=== PATIENT | female | born 1955 | race Caucasian/White ===

== ENCOUNTER 2020-11-01 18:42 | Outpatient (REF) | payer OTHER, SELFPAY ==
[2020-11-01 21:38] LABS: Abs Immature Grans 0.04 10^3/uL (0.0-0.06); Absolute Basophil Count 0.02 10^3/uL (0.0-0.2); Absolute Eosinophil Count 0.08 10^3/uL (0.0-0.7); Absolute Lymphocyte Count 2.93 10^3/uL (1.2-3.4); Absolute Monocyte Count 0.58 10^3/uL (0.1-0.8); Absolute Neutrophil Count 6.06 10^3/uL (1.2-6.7); Basophils % 0.2; Eosinophils % 0.8; HCT 43.4 % (36.0-46.0); Immature Grans % 0.4; Lymphocytes % 30.2; MCH 28.5 pg (27.0-33.0); MCHC 32.3 % (32.0-36.0); MCV 88.2 fL (80-95); MPV 10.2 fL (8.0-11.0); Neutrophils % 62.4; Nucleated RBC 0 %; Platelet Count 277 10^3/uL (130-400); RBC 4.92 10^6/uL (3.93-5.22); RDW 12.9 % (11.7-14.6); RDW-SD 42.1 fL; WBC 9.71 10^3/uL (4.4-10.8)
[2020-11-01 22:41] LABS: ALT 25 U/L (14-59); AST 17 U/L (15-37); Albumin 3.5 g/dL (3.4-5.0); Alkaline Phosphatase 65 U/L (46-116); BUN 16 mg/dL (7-18); Bilirubin, Total 0.2 mg/dL (0.2-1.0); CREATININE 0.91 mg/dL (0.55-1.02); Calcium 8.8 mg/dL (8.5-10.1); Chloride 106 mmol/L (98-107); Glucose 132 mg/dL (74-106); Potassium 3.5 mmol/L (3.5-5.1); Sodium 142 mmol/L (136-145); Total Protein 7.2 g/dL (6.4-8.2)
[2020-11-01 22:42] LABS: Hemoglobin A1C 5.8 % (<5.7)
== END 2020-11-01 19:02 ==
LOC: NCHCN 18:42
PROVIDERS: PCP Nurse Practitioner Family; Visit Provider Nurse Practitioner Community Health
DX: E78.5 Hyperlipidemia, unspecified (principal); R73.09 Other abnormal glucose; L29.8 Other pruritus
CPT/HCPCS: 80053; 80061; 83036; 84443; 85025

== ENCOUNTER 2020-12-21 02:05 | Outpatient (CLI) | payer OTHER, SELFPAY ==
[2020-12-21 08:41] VITALS: BP 144/83; PULSE 90; RESP 16; TEMP 37; O2SAT 91
[2020-12-21] MEDS: Normal Saline 500 ML 30 ML IV (09:04)
[2020-12-21] MEDS: Normal Saline Flush 10 ML SYR IVP (09:04)
[2020-12-21 09:08] VITALS: BP 144/82; PULSE 82; RESP 18; TEMP 36.8; O2SAT 92
[2020-12-21 09:31] VITALS: BP 140/83; PULSE 79; RESP 20; TEMP 36.6; O2SAT 92
[2020-12-21 10:01] VITALS: BP 140/84; PULSE 78; RESP 20; TEMP 36.6; O2SAT 92
[2020-12-21 10:27] VITALS: BP 134/80; PULSE 77; RESP 20; TEMP 36.6; O2SAT 92
== END 2020-12-21 02:06 | disposition home or self-care (01) ==
LOC: INF 02:06
PROVIDERS: PCP Nurse Practitioner Family; Visit Provider Family Medicine
DX: U07.1 COVID-19 (principal)
CPT/HCPCS: 96365

== ENCOUNTER 2021-03-25 18:44 | Outpatient (REF) | payer OTHER, SELFPAY | END 2021-03-25 18:45 | disposition home or self-care (01) | LOC: NCHCN 18:44 | PROVIDERS: PCP Nurse Practitioner Family; Visit Provider Nurse Practitioner Family | DX: L02.411 Cutaneous abscess of right axilla (principal) | CPT/HCPCS: 87077; 87070; 87186; 87205 ==

== ENCOUNTER 2022-01-10 16:23 | Outpatient (REF) | payer MEDICARE, SELFPAY ==
[2022-01-10 16:49] LABS: Anion Gap 9.1 mmol/L (3-11); BUN 17 mg/dL (7-18); CO2 27.9 mmol/L (21.0-32.0); CREATININE 0.8 mg/dL (0.55-1.02); Calculated LDL 148 mg/dL (<100); Chloride 105 mmol/L (98-107); Cholesterol 224 mg/dL (<200); Glucose 100 mg/dL (74-106); HDL Cholesterol 50 mg/dL (40-60); Potassium 4.1 mmol/L (3.5-5.1); Sodium 142 mmol/L (136-145); TSH 2.81 uIU/mL (0.36-3.74); Triglyceride 132 mg/dL (<150); Vitamin B12 378 pg/mL (193-986)
== END 2022-01-10 16:24 | disposition home or self-care (01) ==
LOC: NCHCN 16:23
PROVIDERS: PCP Nurse Practitioner Family; Visit Provider Nurse Practitioner Family
DX: E78.5 Hyperlipidemia, unspecified (principal); R73.03 Prediabetes; K21.9 Gastro-esophageal reflux disease without esophagitis; E66.9 Obesity, unspecified; Z13.29 Encounter for screening for other suspected endocrine disorder
CPT/HCPCS: 80048; 80061; 82607; 83036; 83735; 84443

== ENCOUNTER 2024-04-08 11:17 | Outpatient (REF) | payer MEDICARE, SELFPAY ==
[2024-04-08 14:28] LABS: HCT 44.3 % (36.0-46.0); HGB 14.5 g/dL (11.2-15.7); MCH 28.9 pg (27.0-33.0); MCHC 32.7 % (32.0-36.0); MCV 88 fL (80-95); MPV 10.9 fL (8.0-11.0); Platelet Count 209 10^3/uL (130-400); RBC 5.01 10^6/uL (3.93-5.22); RDW 12.7 % (11.7-14.6); RDW-SD 41.1 fL; WBC 5.34 10^3/uL (4.4-10.8)
[2024-04-08 14:49] LABS: Hemoglobin A1C 5.9 % (<5.7)
[2024-04-08 15:10] LABS: ALT 26 U/L (14-59); AST 19 U/L (15-37); Albumin 3.6 g/dL (3.4-5.0); Alkaline Phosphatase 55 U/L (46-116); Anion Gap 10.4 mmol/L (3-11); BUN 20 mg/dL (7-18); Bilirubin, Total 0.3 mg/dL (0.2-1.0); CO2 26.6 mmol/L (21.0-32.0); CREATININE 0.8 mg/dL (0.55-1.02); Calcium 9.4 mg/dL (8.5-10.1); Calculated LDL 154 mg/dL (<100); Chloride 106 mmol/L (98-107); Cholesterol 232 mg/dL (<200); Estimated GFR 80.71 (mL/min/1.73m2); Glucose 114 mg/dL (74-106); HDL Cholesterol 56 mg/dL (40-60); Sodium 143 mmol/L (136-145); Total Protein 7.2 g/dL (6.4-8.2); Triglyceride 110 mg/dL (<150); Vitamin B12 316 pg/mL (193-986)
== END 2024-04-08 11:18 | disposition home or self-care (01) ==
LOC: NCHCN 11:17
PROVIDERS: PCP Nurse Practitioner Family; Visit Provider Nurse Practitioner Family
DX: E78.5 Hyperlipidemia, unspecified (principal); R73.03 Prediabetes; I10 Essential (primary) hypertension; Z51.81 Encounter for therapeutic drug level monitoring; Z13.0 Encounter for screening for diseases of the blood and blood-forming organs and certain disorders involving the immune mechanism
CPT/HCPCS: 80053; 80061; 85027; 82607; 83036; 83735

== ENCOUNTER 2025-10-21 10:58 | Outpatient (REF) | payer MEDICARE, SELFPAY ==
[2025-10-21 15:34] LABS: HCT 44.7 % (36.0-46.0); HGB 14.5 g/dL (11.2-15.7); MCH 29.3 pg (27.0-33.0); MCHC 32.4 % (32.0-36.0); MCV 90 fL (80-95); MPV 10.1 fL (8.0-11.0); Platelet Count 253 10^3/uL (130-400); RBC 4.95 10^6/uL (3.93-5.22); RDW 12.3 % (11.7-14.6); RDW-SD 40.5 fL; WBC 6.65 10^3/uL (4.4-10.8)
[2025-10-21 15:47] LABS: Anion Gap 8.6 mmol/L (3-11); BUN 18 mg/dL (9-23); CO2 29.4 mmol/L (20.0-31.0); Calcium 8.9 mg/dL (8.3-10.6); Chloride 104 mmol/L (98-107); Cholesterol 216 mg/dL (<200); Glucose 122 mg/dL (74-106); HDL Cholesterol 53 mg/dL (>40); Potassium 4.2 mmol/L (3.5-5.1); Sodium 142 mmol/L (136-145)
[2025-10-21 16:05] LABS: Hemoglobin A1C 5.8 % (<5.7)
== END 2025-10-21 10:59 | disposition home or self-care (01) ==
LOC: NCHCN 10:58
PROVIDERS: PCP Nurse Practitioner Family; Visit Provider Nurse Practitioner Family
DX: Z13.0 Encounter for screening for diseases of the blood and blood-forming organs and certain disorders involving the immune mechanism (principal); E78.5 Hyperlipidemia, unspecified; R73.03 Prediabetes
CPT/HCPCS: 80048; 80061; 85027; 83036